=== PATIENT | female | born 1975 | race American Indian/Alaskan Native ===

== ENCOUNTER 2017-08-14 02:32 | Emergency (ER) | payer MEDICAID ==
[2017-08-14 02:56] VITALS: RESP 18
--- NOTE | 2017-08-14 03:09 | C.PDOC ---
History Of Present Illness 41 year old female presents to ER for evaluation of a possible allergic reaction. Patient states she has pruritus all over her body and swelling to her face. She denies any shortness of breath, throat swelling, tongue swelling. She denies using any new face lotions, cleansers, new foods or linen. She states she was recently on antibiotic course for UTI for 10 days, with the last dose yesterday. She reports taking Benadryl for her symptoms with no relief. Time Seen by Provider: 08/14/17 02:47 Chief Complaint (Nursing): Allergic Reaction History Per: Patient History/Exam Limitations: no limitations Onset/Duration Of Symptoms: Hrs Current Symptoms Are (Timing): Still Present Possible Cause: Unknown Associated Symptoms: Swelling, Itching. denies: Trouble Swallowing, Chest Pain Home/EMS Treatment: Benadryl Past Medical History Reviewed: Historical Data, Nursing Documentation, Vital Signs Vital Signs: Last Vital Signs Temp 98.4 F 08/14/17 02:47 Pulse 91 H 08/14/17 02:47 Resp 18 08/14/17 02:47 BP 136/92 H 08/14/17 02:47 Pulse Ox 98 08/14/17 03:14 - Medical History PMH: No Chronic Diseases Surgical History: No Surg Hx Family History: States: No Known Family Hx - Social History Hx Alcohol Use: Yes Hx Substance Use: Yes - Immunization History Hx Tetanus Toxoid Vaccination: No Hx Influenza Vaccination: No Hx Pneumococcal Vaccination: No Review Of Systems ENT: Positive for: Other (face swelling). Negative for: Throat Swelling Cardiovascular: Negative for: Chest Pain Respiratory: Negative for: Shortness of Breath Skin: Positive for: Rash (itching) Physical Exam - Physical Exam Appears: Non-toxic, No Acute Distress Skin: Normal Color, Warm, Dry, No Rash, No Ecchymosis, Other (erythematous patches noted to bilateral forearms) Head: Atraumatic, Normacephalic, No Swelling Eye(s): bilateral: Normal Inspection, EOMI Nose: Normal, No Flaring Oral Mucosa: Moist Tongue: Normal Appearing, No Swelling Lips: Normal Appearing, No Swelling Teeth: Normal Dentition Gingiva: Normal Appearing Throat: Normal, No Erythema, No Exudate, No Drooling, No Mass Neck: Normal ROM, Supple Chest: Symmetrical Cardiovascular: Rhythm Regular Respiratory: Normal Breath Sounds, No Rhonchi, No Wheezing Extremity: Normal ROM Neurological/Psych: Oriented x3, Normal Speech ED Course And Treatment O2 Sat by Pulse Oximetry: 98 (RA) Pulse Ox Interpretation: Normal Medical Decision Making Medical Decision Making: Impression: Allergic reaction Plan: -- Prednisone 40mg PO -- Pepcid 20mg PO -- Benadryl 25mg PO Patient has no facial or intraoral swelling or signs of angioedema. Patient treated with oral medications. She remained well in no distress, speaking clear sentences and tolerating her own secretions. Patient stable for discharge. Rx given. Patient advised to avoid potential allergens. Disposition Counseled Patient/Family Regarding: Diagnosis, Need For Followup, Rx Given - Disposition Referrals: Shaik Watters MD [Staff Provider] - Disposition: HOME/ ROUTINE Disposition Time: 03:14 Condition: GOOD Additional Instructions: Take Benadryl 1-2 tabs every 4-6 hours for rash and as needed for itching Take Prednisone daily Avoid potential allergens Follow up with your primary medical doctor or clinic in 2-5 days for further evaluation. Return to the emergency department at any time if symptoms persist or worsen. Prescriptions: DiphenhydrAMINE [Benadryl] 25 mg PO Q4 PRN #30 cap PRN Reason: Rash Prednisone 50 mg PO DAILY #3 tablet Instructions: Hives (DC) Forms: [facility] (Macedonian) - POA Present On Arrival: None - Clinical Impression Clinical Impression: Allergic urticaria - PA / [employer] / Resident Statement MD/DO has reviewed & agrees with the documentation as recorded. - Scribe Statement The provider has reviewed the documentation as recorded by the Scribe (Kassandra Gonzales) Provider Attestation: All medical record entries made by the Scribe were at my direction and personally dictated by me. I have reviewed the chart and agree that the record accurately reflects my personal performance of the history, physical exam, medical decision making, and the department course for this patient. I have also personally directed, reviewed, and agree with the discharge instructions and disposition.
[2017-08-14 04:01] VITALS: BP 129/85; PULSE 86; TEMP 97.9
[2017-08-14 04:20] VITALS: O2SAT 98
== END 2017-08-14 04:10 | disposition home or self-care (01) ==
LOC: C.ER 02:32 → SUPCPDRO 02:32 → C.ER 04:10
DX: L50.0 Allergic urticaria (principal)